=== PATIENT | male | born 1990 | race Caucasian/White ===

== ENCOUNTER → 2019-02-19 | Outpatient (CLI) | payer BC ==
[~2019-02-19] MED LIST: AUG500 PO; TRA50 PO; [UNRECOGNIZED DRUG - REMARK]
--- NOTE | 2019-02-19 13:23 | RADIOLOGY IMAGING REPORT ---
FACILITY: [facility] - [place] PATIENT NAME: Gualberto Claros : 1990 MR: [id number] V: [id number] EXAM DATE: ORDERING PHYSICIAN: NETTA WEISS TECHNOLOGIST: Location: [facility] Patient: Gualberto Claros : 1990 Visit/Account:[id number] Date of Sevice: 02/19/2019 Technique: L-SPINE 2 OR 3 VIEW HISTORY: Lower back pain COMPARISON: None available FINDINGS: 5 nonrib-bearing lumbar type vertebral bodies are present. There is no acute fracture. Th e vertebral body alignment, heights and intervertebral disc spaces are maintained. Impression: 1. No acute osseous process of the lumbar spine. Report Dictated By: Ke Cordon DO at 02/19/2019 1:18 PM Report E-Signed By: Ke Cordon DO at 02/19/2019 1:18 PM WSN:[id number]
== END ==
LOC: RAD 12:17
PROVIDERS: ATTEND Family Medicine
DX: M54.5 Low back pain (principal)
CPT/HCPCS: 72100